=== PATIENT | female | born 1980 | race Caucasian/White ===

== ENCOUNTER 2019-11-13 10:21 | Emergency (ER) | payer OTHER, SELFPAY ==
[2019-11-13 10:32] VITALS: BP 131/73; PULSE 90; RESP 18; TEMP 37.1; O2SAT 98
--- NOTE | 2019-11-13 11:16 | ED.WOUNDLAC ---
HPI - Wound/Laceration General Chief Complaint: Wound/Laceration Stated Complaint: spider bite Time Seen by Provider: 11/13/19 11:16 Source: patient and RN notes reviewed Mode of arrival: ambulatory Limitations: no limitations History of Present Illness HPI narrative: 39 year old female presents to express care with complaints of red inflamed lesion to her right upper inner thigh for the past 3 days. Patient states that she was at [employer] on Tuesday and she was bit by something and has been experiencing raised tender red lesion with surrounding redness and warmth to her right upper thigh ever since.Patient states surrounding redness and warmth has decreased but she has had intermittent fevers up to 100.6 since Tuesday. Patient has red raised lesion 0.5cm diameter with no palpable induration of tissue noted,no palpable warmth noted. Patient states that she had a virtual visit with provider at her PCP office and was told to come here for further evaluation. Onset (ago): day(s) (3) Location: other (upper right inner thigh) Extremity Location: Right: thigh Place: outdoors Patient tetanus UTD: Yes Associated symptoms: pain and fever Treatments prior to arrival: NSAIDS and other (Benadryl) Related Data Home Medications Medication Instructions Recorded Confirmed levonorgestrel 20 mcg/24 hours (5 1 device I-UTERINE ONCE 07/11/19 11/13/19 yrs) 52 mg intrauterine device Allergies Allergy/AdvReac Type Severity Reaction Status Date / Time fluoxetine Allergy Unknown Hives Verified 07/12/19 14:23 Penicillins Allergy Unknown Unknown Verified 07/12/19 14:23 Review of Systems Review of Systems: Narrative: CONSTITUTIONAL:positive for fever, chills, or sweats. EYES: Denies visual changes, redness, or discharge. ENT: Denies rhinorrhea, congestion, sore throat, or otalgia. CARDIOVASCULAR: Denies chest pain, palpitations, or edema. RESPIRATORY: Denies cough or dyspnea. GASTROINTESTINAL: Denies abdominal pain, nausea, vomiting, or diarrhea. GENITOURINARY: Denies dysuria or hematuria. SKIN: positive for red lesion to right thigh with pruritis. MUSCULOSKELETAL: Denies back pain, joint pain, or myalgia. NEUROLOGIC: Denies headache, numbness, or weakness. PSYCHIATRIC: positive history anxiety or depression. All systems reviewed & are unremarkable except as noted in HPI and below PMFSH Past Medical History Medical History (Updated 11/14/19 @ 14:12 by Mary Ann Camacho NP) Allergies Anemia delivery delivered 2008, 2012 Chicken pox Depression Heartburn Hemorrhoids Herniated disc Surgical History Surgical History (Updated 11/14/19 @ 13:57 by Mary Ann Camacho NP) History of History of removal of ovarian cyst 2001 Family History Family History Mother Lymphoma Thyroid disease Afib Grandparent Afib Social History Social History Smoking status: Never smoker Alcohol intake: current Gender identity (if verbalized by the patient): Female Comments At time of signature, agree with nursing past medical, surgical, social history. There is no relevant family history pertinent to the presenting complaint Exam Narrative: Exam Narrative: GENERAL: Well-appearing, well-nourished, and in no acute distress. HEAD: Normocephalic, atraumatic. EYES: PERRLA and EOMI. ENT: Nares clear, no rhinorrhea or epistaxis. Mucous membranes moist.TM's normal with good light reflex, throat pink with no redness or tonsil swelling NECK: Supple.no lymphadenopathy CHEST: Clear to auscultation. No respiratory distress.SAO2 98% on room air HEART: Regular rate and rhythm. No murmur heard. Normal peripheral pulses. ABDOMEN: Soft, nontender, nondistended, normal active bowel sounds. EXTREMITIES: Normal range of motion. No edema. SKIN: Warm, dry,o.5cm diameter red raised lesion to right upper inner thigh with no chaparro
== END 2019-11-13 11:36 | disposition home or self-care (01) ==
PROVIDERS: Emergency Provider Registered Nurse; PCP Internal Medicine
DX: S70.361A Insect bite (nonvenomous), right thigh, initial encounter (principal); L08.9 Local infection of the skin and subcutaneous tissue, unspecified; W57.XXXA Bitten or stung by nonvenomous insect and other nonvenomous arthropods, initial encounter
CPT/HCPCS: 99213; G0463

== ENCOUNTER 2020-03-04 12:44 | Outpatient (NON) | payer OTHER, SELFPAY ==
[2020-03-05 22:36] LABS: SARS-CoV-2 RNA PCR Negative
== END 2020-03-04 12:45 ==
PROVIDERS: PCP Internal Medicine; Visit Provider Clinical Nurse Specialist
DX: Z20.828 Contact with and (suspected) exposure to other viral communicable diseases (principal); R05 Cough
CPT/HCPCS: 87635; C9803; U0003

== ENCOUNTER 2020-07-04 11:18 | Outpatient (CLI) | payer OTHER, SELFPAY | END 2020-07-04 11:19 | disposition home or self-care (01) | LOC: ANHCOVIDVC 11:18 | PROVIDERS: PCP Internal Medicine | DX: Z23 Encounter for immunization (principal) | CPT/HCPCS: 0001A; 91300 ==

== ENCOUNTER 2020-07-25 11:18 | Outpatient (CLI) | payer OTHER, SELFPAY | END 2020-07-25 11:19 | disposition home or self-care (01) | LOC: ANHCOVIDVC 11:18 | PROVIDERS: PCP Internal Medicine | DX: Z23 Encounter for immunization (principal) | CPT/HCPCS: 0002A; 91300 ==

== ENCOUNTER 2022-02-01 01:20 | Day surgery (SDC) | payer OTHER, SELFPAY ==
[2022-01-01 13:49] VITALS: BMI 36.6
--- NOTE | 2022-01-08 13:43 | PC.NURSE ---
Call Completed on 01/08/22 at 1335. Patient states there have been no changes since previous PAT call completed on 01/01/22 at 1346. Patient verbalized understanding to call us with any questions regarding her prep/procedure etc.
[2022-02-01 11:49] VITALS: BP 132/80; PULSE 75; RESP 18; TEMP 36.6; O2SAT 99; BMI 37.4
[2022-02-01] MEDS: LACTATED RINGERS 1,000 ML 150 ML IV CONT (12:04)
--- NOTE | 2022-02-01 12:27 | WPDANESEPPF ---
Anes - Initial Pre Proc Eval Procedure: Operation Date: 02/01/22 13:00 Proposed Procedures p Screening Colonoscopy - Linus Kingsley MD Date/Time: 02/01/22 12:27 Surgeon: Linus Kingsley MD Pre Op Diagnosis: family hx colon polyps, neoplasm screening Patient Data Age: 41 Gender: F Height: 1.65 m Weight: 102.1 kg Last Vital Signs Temp 97.8 F 02/01/22 11:49 Pulse 75 02/01/22 11:49 Resp 18 02/01/22 11:49 BP 132/80 02/01/22 11:49 Pulse Ox 99 02/01/22 11:49 O2 Del Method Room Air 02/01/22 11:49 Allergies Allergy/AdvReac Type Severity Reaction Status Date / Time fluoxetine Allergy Unknown Hives Verified 02/01/22 11:49 Penicillins Allergy Unknown Unknown Verified 02/01/22 11:49 Home Medications Medication Instructions Recorded Confirmed Type levonorgestrel 20 mcg/24 hours (7 1 device intrauterine ONCE 07/11/19 01/01/22 History yrs) 52 mg intrauterine device (Mirena) ergocalciferol (vitamin D2) 1,250 50,000 unit PO WEEKLY #8 caps 05/27/21 01/01/22 Rx mcg (50,000 unit) capsule fluticasone propionate 50 1 spray intranasal Q12H #15.8 mL 08/24/21 01/01/22 Rx mcg/actuation nasal spray,suspension (Flonase Allergy Relief) Patient hx anesthesia problems: none Family hx anesthesia problems: none Results Review: All pre-operative results and documents have been reviewed as part of the pre-operative evaluation. [facility] Past Medical History Medical History (Updated 12/11/21 @ 10:06 by Leny Arce NP) Allergies Anemia delivery delivered 2008, 2012 Chicken pox Depression Heartburn Hemorrhoids Herniated disc Surgical History Surgical History History of History of removal of ovarian cyst 2001 Family History Family History Mother Lymphoma Thyroid disease Afib MDS (myelodysplastic syndrome) Grandparent Afib Social History Social History Social History: Caffeine-daily Smoking status: Never smoker Alcohol intake: current Drinks per week: 6 Alcohol use details: weekly Substance use: never Substance use type: does not use Living arrangements: with family Gender identity (if verbalized by the patient): Female Spiritual care concerns: No Anes - Eval Final PreProcedure Day of Procedure 02/01/22 12:27 Patient weight: obese Heart: regular rate and rhythm Lungs: clear to auscultation Airway: Mallampati scale class II Neurological: alert and oriented Last oral intake: >/= 8 hours ASA classification: II Emergent: no Anesthetic plan: proceed Anesthesia type and monitoring: general GIVS and standard monitoring Results Review: All pre-operative results and documents have been reviewed as part of the pre-operative evaluation. Informed Consent: The patient's anesthetic plan and its attendant risks and benefits were discussed with the patient/family/POA. Questions were solicited and answers provided to the satisfaction of the patient/family/POA.
--- NOTE | 2022-02-01 12:36 | PM.HPGS ---
History of Present Illness History of Present Illness Consent: Risks, benefits, and alternatives have been discussed and questions answered. Patient agrees to proceed with procedure. Chief complaint: family hx colon polyps, neoplasm screening Narrative: Therese Hager is a 41 year old female here for first screening colonoscopy, mother had TA colon polyps Review of Systems Constitutional: Constitutional: Denies headache(s) and Denies weakness Eyes: Eyes: Denies blurry vision ENT: Reports Normal hearing present, Denies headache(s) and Denies neck pain Cardiovascular: Cardiovascular: Denies chest pain and Denies dyspnea Respiratory: Respiratory: Denies dyspnea Gastrointestinal: Gastrointestinal: Reports no additional gastrointestinal complaints Genitourinary: Genitourinary: Denies dysuria Musculoskeletal: Musculoskeletal: Denies neck pain Integumentary/Breasts: Skin/Breast: Denies dry skin Neurologic: Reports Normal hearing present, Denies headache(s) and Denies weakness Psychiatric: Psychiatric: Denies anxiety Endocrine: Endocrine: Denies change in body appearance Hematologic/Lymphatic: Hematologic/Lymphatic: Denies easy bleeding Allergic/Immunologic: Allergic/Immunologic: Denies urticaria PMFSH Past Medical History Medical History (Updated 12/11/21 @ 10:06 by Leny Arce NP) Allergies Anemia delivery delivered 2008, 2012 Chicken pox Depression Heartburn Hemorrhoids Herniated disc Surgical History Surgical History History of History of removal of ovarian cyst 2001 Family History Family History Mother Lymphoma Thyroid disease Afib MDS (myelodysplastic syndrome) Grandparent Afib Social History Social History Social History: Caffeine-daily Smoking status: Never smoker Alcohol intake: current Drinks per week: 6 Alcohol use details: weekly Substance use: never Substance use type: does not use Living arrangements: with family Gender identity (if verbalized by the patient): Female Spiritual care concerns: No Meds Home Medications and Allergies Home Medications Medication Instructions Recorded Confirmed Type levonorgestrel 20 mcg/24 hours (7 1 device intrauterine ONCE 07/11/19 01/01/22 History yrs) 52 mg intrauterine device (Mirena) ergocalciferol (vitamin D2) 1,250 50,000 unit PO WEEKLY #8 caps 05/27/21 01/01/22 Rx mcg (50,000 unit) capsule fluticasone propionate 50 1 spray intranasal Q12H #15.8 mL 08/24/21 01/01/22 Rx mcg/actuation nasal spray,suspension (Flonase Allergy Relief) Allergies Allergy/AdvReac Type Severity Reaction Status Date / Time fluoxetine Allergy Unknown Hives Verified 02/01/22 11:49 Penicillins Allergy Unknown Unknown Verified 02/01/22 11:49 Vital Signs Vital Signs - 24 hr 02/01/22 11:49 Temperature 97.8 F Pulse Rate 75 Respiratory Rate 18 Blood Pressure 132/80 Pulse Oximetry 99 Oxygen Delivery Room Air Exam Const: General: comfortable and no acute distress HENMT: Face/Nose/Sinus: Normal nares present Eyes: General: appearance normal, both eyes and all related structures Neck: Neck: no JVD Resp: Auscultation: clear to auscultation bilaterally Cardio: Rate: regular rate Rhythm: regular rhythm GI: Inspection: non-distended GI Palp: Yes Soft to palpation Skin: General skin exam: normal color Neuro: General: gait normal Speech: normal speech Extrem: General: normal to inspection Psych: Mental Status: mental status grossly normal Assessment and Plan Assessment and plan (1) Family history of colonic polyps: Code(s): Z83.71 - Family history of colonic polyps Status: Acute Assessment and Plan: colonoscopy
[2022-02-01 13:01] VITALS: BP 110/76; PULSE 75; RESP 23; O2SAT 100
[2022-02-01 13:11] VITALS: BP 126/72; PULSE 59; RESP 22; O2SAT 100
[2022-02-01 13:21] VITALS: BP 115/74; PULSE 59; RESP 20; O2SAT 100
== END 2022-02-01 13:33 | disposition home or self-care (01) ==
PROVIDERS: PCP Internal Medicine; Visit Provider Internal Medicine Gastroenterology
PROC: 0DJD8ZZ Inspection of Lower Intestinal Tract, Via Natural or Artificial Opening Endoscopic (ICD-10-PCS; CPT 45378; principal; 2022-02-01 13:00)
DX: Z12.11 Encounter for screening for malignant neoplasm of colon (principal); D12.3 Benign neoplasm of transverse colon; K57.30 Diverticulosis of large intestine without perforation or abscess without bleeding; K64.8 Other hemorrhoids; D64.9 Anemia, unspecified; F32.A Depression, unspecified; R12 Heartburn; E66.9 Obesity, unspecified; Z68.37 Body mass index [BMI] 37.0-37.9, adult; Z83.71 Family history of colonic polyps
CPT/HCPCS: 45385; 88305; J2704; J7120

== ENCOUNTER 2022-02-16 09:56 | Outpatient (CLI) | payer OTHER, SELFPAY ==
--- NOTE | ~2022-02-16 | MM_ITS ---
EXAMINATION: MM screening jenny BI w [facility] HISTORY: Screening TECHNIQUE: Craniocaudal and mediolateral oblique 3-D tomosynthesis images were obtained and synthetic 2-D images were generated. CAD analysis was submitted and interpreted. COMPARISON: No prior mammogram is available for comparison at this institution. BREAST PARENCHYMAL COMPOSITION: There are scattered areas of fibroglandular density. FINDINGS: There is no evidence of suspicious mass, calcification, or architectural distortion to sugg est malignancy in either breast. There has been no suspicious interval change. IMPRESSION: 1. No mammographic evidence of malignancy. 2. Recommend routine screening mammography in one year. BI-RADS Category 1: Negative Reviewed, dictated and finalized at location A.
== END 2022-02-16 09:57 | disposition home or self-care (01) ==
PROVIDERS: PCP Internal Medicine; Visit Provider Obstetrics & Gynecology
DX: Z12.31 Encounter for screening mammogram for malignant neoplasm of breast (principal)
CPT/HCPCS: 77063; 77067

== ENCOUNTER → 2022-04-21 11:57 | Outpatient (CLI) | payer OTHER, SELFPAY ==
--- NOTE | ~2022-04-21 | XR_ITS ---
Right Knee Technique: AP, lateral, and sunrise views were obtained. Clinical History: Pain Findings: No fracture or dislocation is seen. Suspected area of erosive/destructive change at the lat eral aspect of the patella on sunrise view. Osseous alignment is anatomic. Joint spaces are preserved without degenerative or erosive change. Soft tissues are unremarkable. No joint effusion is seen. Impression: Suspected area of erosive/destructive change at the lateral patella on sunrise view. This is possibly artifactual due to overpenetration of the image. Correlate for point tenderness in this region. Cons ider MR to further evaluate for underlying lesion, as indicated. Reviewed, dictated and finalized at location M. CT MARKETING ANALYST Impression: Suspected area of erosive/destructive change at the lateral patella on sunrise view. This is possibly artifactual due to overpenetration of the image. Correla te for point tenderness in this region. Consider MR to further evaluate for und erlying lesion, as indicated.
== END ==
PROVIDERS: PCP Nurse Practitioner; Visit Provider Nurse Practitioner
DX: M25.561 Pain in right knee (principal)
CPT/HCPCS: 73564

== ENCOUNTER → 2023-05-30 15:09 | Outpatient (CLI) | payer OTHER, SELFPAY ==
--- NOTE | ~2023-05-30 | XR_ITS ---
EXAM: [id number] DATE: 05/30/2023 15:25 HISTORY: M79.672 - Pain in left foot . COMPARISON: None available. FINDINGS: Normal mineralization. No fracture or dislocation. No lytic or blastic lesion. Mild degene rative change at the first MTP joint and multiple midfoot joints. Mild Achilles and moderate plantar enthesopathy. Mild loss of the longitudinal foot arch. Small os navicularis. No erosion or periosteal change. Soft tissues within normal limits. IMPRESSION: No acute osseous finding in the left foot. Mild polyarticular osteoarthritis. Mild pes pl anus. Reviewed, dictated and finalized at location K. MER ENGINEER IMPRESSION: No acute osseous finding in the left foot. Mild polyarticular osteo arthritis. Mild pes planus.
== END ==
PROVIDERS: PCP Nurse Practitioner; Visit Provider Clinical Nurse Specialist
DX: M79.672 Pain in left foot (principal); M19.072 Primary osteoarthritis, left ankle and foot
CPT/HCPCS: 73630

== ENCOUNTER 2023-07-28 13:57 | Outpatient (CLI) | payer OTHER, SELFPAY ==
--- NOTE | ~2023-07-28 | MM_ITS ---
EXAMINATION: MM screening jenny BI w smitha HISTORY: Screening mammogram TECHNIQUE: Craniocaudal and mediolateral oblique 3-D tomosynthesis images were obtained and synthetic 2-D images were generated. CAD analysis was submitted and interpreted. COMPARISON: 02/16/2022 bilateral screening mammogram BREAST PARENCHYMAL COMPOSITION: There are scattered areas of fibroglandular density. FINDINGS: Occasional benign calcifications. There is no evidence of suspicious mass, calcification, o r architectural distortion to suggest malignancy in either breast. There has been no suspicious inter rachele change. IMPRESSION: 1. No mammographic evidence of malignancy. 2. Recommend routine screening mammography in one year. BI-RADS Category 2: Benign finding(s).. Reviewed, dictated and finalized at location A.
== END 2023-07-28 13:58 ==
LOC: MICIMG 13:58
PROVIDERS: PCP Nurse Practitioner; Visit Provider Obstetrics & Gynecology
DX: Z12.31 Encounter for screening mammogram for malignant neoplasm of breast (principal)
CPT/HCPCS: 77063; 77067

== ENCOUNTER 2023-12-20 14:08 | Outpatient (NON) | payer OTHER, SELFPAY ==
[2023-12-20 15:28] LABS: Add Urine Microscopic? YES; Appearance Urine Clear (Clear); Bacteria Urine None Seen /hpf; Bilirubin Urine Negative (Negative); Blood Urine 1+ (Negative); Color Urine Yellow (Yellow); Glucose Urine UA Negative (Negative); Ketones Urine Negative (Negative); Leukocyte Esterase Ur 1+ LEU/UL (Negative); Nitrate Urine Negative (Negative); Non Pathogenic Casts 0-2; Protein Urine Negative (Negative); RBC Urine 0-2 /hpf (0-2); Specific Grav Ur 1.006 (1.001-1.035); Squamous Epithelial Cell Urine None Seen /hpf (Few); Urobilinogen Urine 0.2 mg/dL (<2.0); pH Urine 6.5 (5.0-9.0)
== END 2023-12-20 14:09 | disposition home or self-care (01) ==
LOC: ANHGOSHLAB 14:09
PROVIDERS: PCP Nurse Practitioner; Visit Provider Nurse Practitioner
DX: R39.9 Unspecified symptoms and signs involving the genitourinary system (principal); R30.0 Dysuria
CPT/HCPCS: 81001; 87086; 87088

== ENCOUNTER 2024-11-05 12:11 | Outpatient (CLI) | payer OTHER, SELFPAY ==
--- NOTE | ~2024-11-05 | MM_ITS ---
EXAMINATION: MM screening jenny BI w smitha HISTORY: Screening TECHNIQUE: Craniocaudal and mediolateral oblique 3-D tomosynthesis images were obtained and synthetic 2-D images were generated. CAD analysis was submitted and interpreted. COMPARISON: Comparison to multiple prior studies sequentially, with oldest reviewed study dated 01/30. BREAST PARENCHYMAL COMPOSITION: Not dense: There are scattered areas of fibroglandular density. FINDINGS: There is no evidence of suspicious mass, calcification, or architectural distortion to sugg est malignancy in either breast. There has been no suspicious interval change. IMPRESSION: 1. No mammographic evidence of malignancy. 2. Recommend routine screening mammography in one year. BI-RADS Category 1: Negative Reviewed, dictated and finalized at location A.
== END 2024-11-05 12:12 | disposition home or self-care (01) ==
LOC: MICIMG 12:14
PROVIDERS: PCP Obstetrics & Gynecology; Visit Provider Nurse Practitioner
DX: Z12.31 Encounter for screening mammogram for malignant neoplasm of breast (principal)
CPT/HCPCS: 77063; 77067